=== PATIENT | male | born 1960 | race Caucasian/White ===

== ENCOUNTER 2017-02-13 11:37 | Emergency (ER) | payer OTHER ==
[2017-02-13] MEDS ORDERED: Amoxicillin/Clavulanate K 875-125 MG Tab ONE (12:45)
--- NOTE | 2017-02-13 18:12 | EDM.PDOC ---
ED HPI GENERAL MEDICAL PROBLEM - General Chief Complaint: Laceration Stated Complaint: HURT FINGER Time Seen by Provider: 02/13/17 12:00 Source of Information: Reports: Patient History Limitations: Reports: No Limitations - History of Present Illness INITIAL COMMENTS - FREE TEXT/NARRATIVE: This is a 56yo M who was deer hunting and cut his finger dressing a deer yesterday. He comes in today for an evaluation. He cut his left index finger dorsum. Patient denies any fever or chills but does have pain at the site. he wrapped the site and braced it. 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 Treatments, Other (see below) Other Treatments [employer] SALES ADVISOR: wrapped and cleansed per self yesterday Left 2-Index finger Pain Score (Numeric/FACES): 4 - Related Data Allergies Allergy/AdvReac Type Severity Reaction Status Date / Time No Known Allergies Allergy Verified 02/13/17 13:30 Home Meds: Home Meds Gabapentin [Neurontin] 300 mg PO TID 02/13/17 [History] NIFEdipine [Nifedipine] 80 mg PO BID 02/13/17 [History] traMADol [Ultram] 50 mg PO Q6HR 02/13/17 [History] Past Medical History Neurological History: Reports: Migraines - Past Surgical History Neurological Surgical History: Reports: None Social & Family History - Family History Family Medical History: Noncontributory - Tobacco Use Smoking Status *Q: Former Smoker Years of Tobacco use: 17 Used Tobacco, but Quit: Yes Month Tobacco Last Used: 12 Second Hand Smoke Exposure: No - Caffeine Use Caffeine Use: Reports: Coffee - Alcohol Use Days Per Week of Alcohol Use: 1 Number of Drinks Per Day: 10 Total Drinks Per Week: 10 Date of Last Drink: 02/12/17 Time of Last Drink: 22:00 - Recreational Drug Use Recreational Drug Use: No ED ROS GENERAL - Review of Systems Review Of Systems: ROS reveals no pertinent complaints other than HPI. ED EXAM, SKIN/RASH Exam: See Below Extremities: Other (1 1/2 cm x 1 3/4 cm laceration in L shaped of the left dorsum index finger) ED SKIN PROCEDURES - Laceration/Wound Repair Left Proximal Finger Lac/Wound length In cm: 3.3 Appearance: Linear, Mildly Contaminated, Other (L shaped) Distal NVT: Neuro & Vascular Intact Anesthetic Type: Local Local Anesthesia - Lidocaine (Xylocaine): 1% Plain Local Anesthetic Volume: 5cc Skin Prep: Providone-Iodine (Betadine), Sterile Drape, Other (sterile water) Exploration/Debridement/Repair: Wound Explored, In a Bloodless Field, Explored to Base Closed with: Sutures Suture Size: 4-0 # of Sutures: 7 Suture Type: Prolene, Simple Course - Vital Signs Last Recorded V/S: Last Vital Signs Temp 36.1 C 02/13/17 12:19 Pulse 67 02/13/17 12:51 Resp 16 02/13/17 12:51 BP 137/77 02/13/17 12:51 Pulse Ox 99 02/13/17 12:19 Departure - Departure Time of Disposition: 13:15 Disposition: Home, Self-Care 01 Condition: Good Clinical Impression: Laceration - Discharge Information Instructions: Amoxicillin; Clavulanic Acid tablets, Laceration Care, Adult Referrals: PCP,None [Primary Care Provider] - Forms: ED Department Discharge - Problem List & Annotations (1) Laceration SNOMED Code(s): 725923989 Code(s): [id number] - Status: Acute - Problem List Review Problem List Initiated/Reviewed/Updated: Yes - Assessment/Plan Plan: Counseled on wound care. Discussed dehiscence and requirement to f/u for dehiscence and suture removal in 7-10 days. Discussed care and monitoring. Discussed rtc or ER as needed. Antibiotics prescribed and discussed side effects , benefits and f/u. Tetanus addressed.
== END 2017-02-13 12:30 | disposition home or self-care (01) ==
LOC: LB.ED 11:37
DX: S61.211A Laceration without foreign body of left index finger without damage to nail, initial encounter (principal); Z87.891 Personal history of nicotine dependence; W45.8XXA Other foreign body or object entering through skin, initial encounter; Y93.89 Activity, other specified
CPT/HCPCS: 12002; 99283; A9270